=== PATIENT | female | born 1985 | race Two or more races ===

== ENCOUNTER 2020-03-04 11:10 | Day surgery (SDC) | payer OTHER ==
[~2020-03-04 11:10] MED LIST: PROVENTIL HFA6.7 GM IH
== END 2020-03-04 20:00 | disposition home or self-care (01) ==
LOC: CIR.AMB 11:10
DX: N87.1 Moderate cervical dysplasia (principal); N72 Inflammatory disease of cervix uteri

== ENCOUNTER 2022-07-01 20:57 | Inpatient (IN) | payer OTHER ==
[~2022-07-01] VITALS: Ht 170.2 cm; Wt 64.9 kg
== END 2022-07-04 11:45 | disposition home or self-care (01) | DRG 807 ==
LOC: OBS/DEL 20:57 → LDR 23:36 → OB/GYN 23:36
PROVIDERS: ADMIT Obstetrics & Gynecology Maternal & Fetal Medicine; ATTEND Obstetrics & Gynecology Maternal & Fetal Medicine
PROC: 4A1HXCZ Monitoring of Products of Conception, Cardiac Rate, External Approach (ICD-10-PCS; 2022-07-01)
PROC: 10E0XZZ Delivery of Products of Conception, External Approach (ICD-10-PCS; principal; 2022-07-02)
PROC: 0KQM0ZZ Repair Perineum Muscle, Open Approach (ICD-10-PCS; 2022-07-02)
PROC: 0W8NXZZ Division of Female Perineum, External Approach (ICD-10-PCS; 2022-07-02)
DX: O70.1 Second degree perineal laceration during delivery (principal); Z37.0 Single live birth; Z3A.37 37 weeks gestation of pregnancy; Z20.822 Contact with and (suspected) exposure to COVID-19

== ENCOUNTER 2024-01-25 08:17 | Emergency (ER) | payer OTHER ==
[~2024-01-25] VITALS: Ht 170.2 cm; Wt 63.5 kg
[2024-01-25] MEDS ORDERED: FLUTICASONE-SA1 EAC3 IH (08:39)
[2024-01-25] MEDS ORDERED: ALLERGY RELIEF180 MG PO (08:40)
[2024-01-25 09:16] LABS: URINE APPEARANCE Clear; URINE BILIRRUBIN Negative (NEGATIVE); URINE BLOOD Small; URINE COLOR Yellow; URINE GLUCOSE Negative (NEGATIVE); URINE LEUKOCYTE Negative; URINE NITRATE Negative; URINE PROTEIN Negative (NEGATIVE); URINE UROBILINOGEN 0.2 E.U./dl
[2024-01-25 09:17] LABS: URINE BACTERIA 71.8 uL (0.0-1933); URINE RBC 6.8 uL (0.0-20.8)
[2024-01-25 09:23] LABS: URINE WBC 1.6 uL (0.0-23.2)
[2024-01-25 09:39] LABS: HEMATOCRIT 42.5 % (36.0-45.00); HEMOGLOBIN 14.6 g/dL (12.0-15.00); MEAN CELL VOLUME 91.6 fL (80.00-100.00); MEAN CORPUSCULAR HEMOGLOBIN 31.4 pg (27.00-32.0); MEAN CORPUSCULAR HGB CONC 34.2 g/dl (32.0-36.0); PLATELET COUNT 408 K/uL (150-450); RED BLOOD COUNT 4.64 M/uL (4.00-6.00); RED CELL DISTRIBUTION WIDTH 12.8 % (11.5-14.5)
[2024-01-25 10:11] LABS: INR 0.96; PARTIAL THROMBOPLASTIN TIME 30.8 SECONDS (22.0-34.0); PROTHROMBIN TIME 10.1 SECONDS (9.0-11.5)
[2024-01-25 10:54] LABS: CALCIUM 9.9 mg/dL (8.5-10.1); CREATININE SERUM 0.78 mg/dL (0.55-1.02); GFR 83.1; POTASSIUM 3.6 mEq/L (3.5-5.1)
== END 2024-01-25 11:39 | disposition home or self-care (01) ==
LOC: ER 08:17
PROVIDERS: General Practice
DX: O03.9 Complete or unspecified spontaneous abortion without complication (principal); Z91.013 Allergy to seafood

== ENCOUNTER 2024-01-28 11:54 | Emergency (ER) | payer OTHER ==
[~2024-01-28] VITALS: Ht 170.2 cm; Wt 63.5 kg
[~2024-01-28 11:54] MED LIST changes: +ALLERGY RELIEF180 MG PO; +FLUTICASONE-SA1 EAC3 IH
[2024-01-28] MEDS ORDERED: METHYLPREDNISOLONE SOD SUCC 125 MG VIAL IV STA (13:13)
[2024-01-28] MEDS ORDERED: HYDROCODONE/CHLORPHEN P-STIREX 5 ML ML PO STA (13:14)
[2024-01-28] MEDS ORDERED: LEVALBUTEROL HCL 1.25 MG/3 ML SOLUTION IH SCH (13:15)
[2024-01-28 13:51] LABS: HEMOGLOBIN 13.6 g/dL (12.0-15.00); MEAN CELL VOLUME 91.7 fL (80.00-100.00); MEAN CORPUSCULAR HEMOGLOBIN 31.1 pg (27.00-32.0); PLATELET COUNT 339 K/uL (150-450); RED BLOOD COUNT 4.36 M/uL (4.00-6.00); RED CELL DISTRIBUTION WIDTH 12.6 % (11.5-14.5)
== END 2024-01-28 15:03 | disposition home or self-care (01) ==
LOC: ER 11:55
PROVIDERS: General Practice
DX: J45.909 Unspecified asthma, uncomplicated (principal); Z91.013 Allergy to seafood; J10.1 Influenza due to other identified influenza virus with other respiratory manifestations; Z20.822 Contact with and (suspected) exposure to COVID-19

== ENCOUNTER 2024-12-31 13:15 | Inpatient (IN) | payer OTHER ==
[~2024-12-31] VITALS: Ht 170.2 cm; Wt 68.5 kg
[2025-01-11] VITALS (9 sets, daily range): BP systolic 106–131; BP diastolic 58–72; O2SAT 99
[2025-01-11] MEDS ORDERED: RINGERS SOLUTION,LACTATED 1,000 ML IV SCH (09:45)
[2025-01-11] MEDS ORDERED: PRENATA CHEWAB1 EACH PO (10:57)
[2025-01-11] MEDS ORDERED: MORPHINE SULFATE 4 MG/ML CARTRIDGE IV ONE (11:00)
[2025-01-11 11:06] LABS: PH,URINE 5.5 (5.0-8.0); URINE APPEARANCE Clear; URINE BILIRRUBIN Negative (NEGATIVE); URINE BLOOD Trace; URINE COLOR Yellow; URINE GLUCOSE Negative (NEGATIVE); URINE KETONE Trace (NEGATIVE); URINE LEUKOCYTE Small; URINE NITRATE Negative; URINE PROTEIN Negative (NEGATIVE); URINE UROBILINOGEN 0.2 E.U./dl
[2025-01-11 11:11] LABS: HEMATOCRIT 35.9 % (36.0-45.00); HEMOGLOBIN 12.1 g/dL (12.0-15.00); MEAN CELL VOLUME 89.4 fL (80.00-100.00); MEAN CORPUSCULAR HGB CONC 33.6 g/dl (32.0-36.0); PLATELET COUNT 333 K/uL (150-450); RED BLOOD COUNT 4.02 M/uL (4.00-6.00); RED CELL DISTRIBUTION WIDTH 15.8 % (11.5-14.5); URINE BACTERIA 2855.5 uL (0.0-1933); URINE EPITHELIAL CELLS 37.5 uL (0.0-38.8); URINE WBC 110.1 uL (0.0-23.2)
[2025-01-11 11:20] LABS: URINE CAST 0.14 uL (0.0-1.40); URINE RBC 1.3 uL (0.0-20.8)
[2025-01-11 11:28] LABS: INR < 0.93; PARTIAL THROMBOPLASTIN TIME 24.8 SECONDS (22.0-34.0); PROTHROMBIN TIME 9.8 SECONDS (9.0-11.5)
[2025-01-11 12:12] LABS: ALBUMIN 3.2 gm/dL (3.4-5.0); BILIRUBIN TOTAL 0.52 mg/dL (0.3-1.2); CALCIUM 9.4 mg/dL (8.5-10.1); CREATININE SERUM 0.54 mg/dL (0.55-1.02); GFR 127.03; GLOBULINA 4.3 G/DL (2.4-3.5); POTASSIUM 4.36 mEq/L (3.5-5.1); TOTAL PROTEIN 7.5 gm/dL (6.4-8.2)
[2025-01-11] MEDS ORDERED: IBUprofen 400 MG TABLET PO PRN (13:00)
[2025-01-11] MEDS ORDERED: OXYTOCIN 1,000 ML IV SCH (13:00)
[2025-01-11] MEDS ORDERED: CHLORHEXIDINE GLUCONATE 120 ML BOTTLE TP SCH (13:00)
[2025-01-12] VITALS: BP 103/68
[2025-01-12 06:32] LABS: HEMATOCRIT 25.4 % (36.0-45.00); MEAN CELL VOLUME 88.6 fL (80.00-100.00); MEAN CORPUSCULAR HGB CONC 33.6 g/dl (32.0-36.0); PLATELET COUNT 247 K/uL (150-450); RED BLOOD COUNT 2.87 M/uL (4.00-6.00); RED CELL DISTRIBUTION WIDTH 15.4 % (11.5-14.5)
[2025-01-12 06:51] LABS: HEMOGLOBIN 8.5 g/dL (12.0-15.00); MEAN CORPUSCULAR HEMOGLOBIN 29.6 pg (27.00-32.0)
[2025-01-12 08:18] VITALS: BP 97/61
[2025-01-12 17:13] VITALS: BP 110/69
[2025-01-13] VITALS: BP 101/64
[2025-01-13 09:08] VITALS: BP 110/57
== END 2025-01-13 14:00 | disposition home or self-care (01) | DRG 807 ==
LOC: OB/GYN 01-11 09:41 → LDR 01-11 09:41 → O/R 01-11 10:01 → LDR 01-11 10:02 → OB/GYN 01-11 15:18
PROVIDERS: Obstetrics & Gynecology; ADMIT Obstetrics & Gynecology; ATTEND Obstetrics & Gynecology
PROC: 10E0XZZ Delivery of Products of Conception, External Approach (ICD-10-PCS; principal; 2025-01-11)
PROC: 0KQM0ZZ Repair Perineum Muscle, Open Approach (ICD-10-PCS; 2025-01-11)
PROC: 4A1HXCZ Monitoring of Products of Conception, Cardiac Rate, External Approach (ICD-10-PCS; 2025-01-11)
DX: O70.1 Second degree perineal laceration during delivery (principal); Z37.0 Single live birth; Z3A.38 38 weeks gestation of pregnancy

== ENCOUNTER 2025-01-07 09:46 | Emergency (ER) | payer OTHER ==
[~2025-01-07] VITALS: Ht 170.2 cm; Wt 68.5 kg
[2025-01-07] MEDS ORDERED: LEVALBUTEROL HCL 1.25 MG/3 ML SOLUTION IH ONE ×3 (11:00→15:34)
[2025-01-07] MEDS ORDERED: BUDESONIDE 0.5 MG/2 ML AMPUL.NEB IH ONE ×3 (11:00→15:34)
[2025-01-07] MEDS ORDERED: MONTELUKAST SODIUM 10 MG TABLET PO ONE ×2 (11:00→12:00)
== END 2025-01-07 16:22 | disposition home or self-care (01) ==
LOC: ER 09:46
DX: O26.893 Other specified pregnancy related conditions, third trimester (principal); R06.02 Shortness of breath; Z3A.38 38 weeks gestation of pregnancy; Z87.09 Personal history of other diseases of the respiratory system; Z91.013 Allergy to seafood